=== PATIENT | male | born 1975 | race Caucasian/White ===

== ENCOUNTER → 2020-09-25 | Outpatient (CLI) | payer OTHER ==
--- NOTE | 2020-09-25 13:38 | RAD ---
STUDY: MRI of the left knee without contrast INDICATION: Left knee pain. COMPARISON: None. TECHNIQUE: Multiplanar MR imaging of the left knee performed without the use of intravenous or intra- articular contrast. FINDINGS: Menisci: Complex tear of the medial meniscus predominantly centered within the posterior horn to incl ude a vertical/longitudinal tear propagating towards the posterior root. Horizontal T2 signal elevati on extends to the mid aspect of the medial meniscal body, image 25 series 6. The lateral meniscus is intact. Cruciate ligaments: Intact. Collateral ligaments: Intact. Tendons: Intact. Cartilage: Patellofemoral: Partial thickness chondrosis at the junction of the medial trochlea with the medial f emoral condyle overlying the meniscus anterior horn/root. No high-grade patellar chondrosis. Lateral compartment: Intact. Medial compartment: Chondral thinning at the periphery of the weightbearing medial femoral condyle to a greater degree than the medial tibial plateau. Bones: Subchondral marrow edema at the periphery of the medial tibial plateau more so than medial fem oral condyle mainly anteriorly. Miscellaneous: Small knee joint effusion and a small Eason's cyst. Variant anatomy with early branchi ng of the popliteal artery occurring 1.8 cm above the femorotibial articulation. IMPRESSION: 1. Complex tear of the medial meniscus from the mid body through the posterior horn, but primarily a t the posterior horn, to include a vertical longitudinal component (see summers images). The lateral meni scus is intact as are the cruciate and collateral ligaments. 2. Chondral thinning at the periphery of the weightbearing medial compartment extending to the junct ion with the medial trochlea. Mild subjacent marrow edema. 3. Trace knee joint effusion and a small Eason's cyst. Electronically signed by: BRIE OSULLIVAN MD (09/25/2020 1:35 PM) [id number]
== END ==
LOC: MRI 10:29
PROVIDERS: ATTEND Family Medicine
DX: S83.242A Other tear of medial meniscus, current injury, left knee, initial encounter (principal); M71.22 Synovial cyst of popliteal space [Baker], left knee; M25.462 Effusion, left knee; X58.XXXA Exposure to other specified factors, initial encounter; Y93.89 Activity, other specified; Y92.89 Other specified places as the place of occurrence of the external cause; Y99.8 Other external cause status
CPT/HCPCS: 73718